=== PATIENT | female | born 1965 | race Caucasian/White ===

== ENCOUNTER → 2023-03-06 | Outpatient (CLI) | payer BC | LOC: MHCPAIN 10:47 | DX: M47.812 Spondylosis without myelopathy or radiculopathy, cervical region (principal); M48.02 Spinal stenosis, cervical region; M75.51 Bursitis of right shoulder | CPT/HCPCS: G0463 ==

== ENCOUNTER → 2023-04-16 | Outpatient (CLI) | payer BC | LOC: MHCPAIN 13:06 | DX: M48.02 Spinal stenosis, cervical region (principal); M47.892 Other spondylosis, cervical region; M54.12 Radiculopathy, cervical region; M25.511 Pain in right shoulder | CPT/HCPCS: G0463 ==

== ENCOUNTER → 2023-07-23 | Outpatient (CLI) | payer BC | LOC: MHCPAIN 10:58 | DX: M25.511 Pain in right shoulder (principal); M54.12 Radiculopathy, cervical region; M47.892 Other spondylosis, cervical region; M48.02 Spinal stenosis, cervical region | CPT/HCPCS: G0463 ==

== ENCOUNTER → 2023-08-01 | Outpatient (CLI) | payer BC ==
[~2023-08-01] MED LIST: Iohexol 300 - 10 ML VIAL ONE; Lidocaine PF 2% (20 MG/ML) 2 ML VIAL ONE
== END ==
LOC: MHCPAIN 07:54
DX: M47.812 Spondylosis without myelopathy or radiculopathy, cervical region (principal); M54.12 Radiculopathy, cervical region
CPT/HCPCS: J1100; Q9967

== ENCOUNTER → 2024-01-16 | Outpatient (CLI) | payer BC | LOC: MHCPAIN 12:00 | DX: M54.12 Radiculopathy, cervical region (principal) | CPT/HCPCS: J1100; Q9967 ==